=== PATIENT | female | born 1970 | race Caucasian/White ===

== ENCOUNTER 2016-08-10 19:51 | Emergency (ER) | payer OTHER ==
[~2016-08-10] VITALS: Ht 170.2 cm; Wt 90.7 kg
[2016-08-10 20:00] VITALS: BP 165/92
--- NOTE | 2016-08-10 20:42 | RADIOLOGY REPORT ---
EXAMINATION: XR FOOT, LEFT CLINICAL INFORMATION: Left foot pain following fall. COMPARISON: None. TECHNIQUE: AP, lateral, and oblique views of the left foot. FINDINGS: The bones and soft tissues appear unremarkable. No acute fracture or dislocation of the left foot is identified. Joint spaces appear grossly preserved. Soft tissues appear unremarkable. IMPRESSION: No acute fracture or dislocation of the left foot.
--- NOTE | 2016-08-10 20:43 | RADIOLOGY REPORT ---
EXAMINATION: XR ANKLE, LEFT CLINICAL INFORMATION: Left ankle pain following fall. COMPARISON: None. TECHNIQUE: AP, lateral, and mortise views of the left ankle. FINDINGS: No acute fracture or dislocation of the left ankle is identified. The ankle mortise is intact. There is minimal soft tissue swelling surrounding the left ankle joint. No significant anterior posterior ankle joint effusion is identified. IMPRESSION: No acute fracture or dislocation of the left ankle.
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
== END 2016-08-10 21:17 ==
LOC: ERH 19:51
DX: M25.572 Pain in left ankle and joints of left foot (principal)
CPT/HCPCS: 73610-LT; 73630-LT